=== PATIENT | female | born 1945 | race Caucasian/White ===

== ENCOUNTER 2025-07-09 18:04 | Emergency (ER) | payer MEDICARE, BC ==
[~2025-07-09] VITALS: Ht 154.9 cm; Wt 64.9 kg
[2025-07-09] MEDS ORDERED: PROPOFOL 20 ML IV ONE (19:14)
[2025-07-09] MEDS: PROPOFOL 200 MG/20 ML VIAL IV ONE (19:24)
[2025-07-09] MEDS ORDERED: IBUP-1490 PO (20:12)
[2025-07-09 20:36] VITALS: BP 125/65; TEMP 98; O2SAT 100
== END 2025-07-09 20:36 | disposition home or self-care (01) ==
LOC: ER 18:04
DX: S43.014A Anterior dislocation of right humerus, initial encounter (principal); M19.011 Primary osteoarthritis, right shoulder; W18.39XA Other fall on same level, initial encounter; Y93.89 Activity, other specified; Y92.89 Other specified places as the place of occurrence of the external cause; Y99.9 Unspecified external cause status
CPT/HCPCS: 99285; 23650; 99152; 73030 ×2; J2704; G0500